=== PATIENT | female | born 1980 | race Caucasian/White ===

== ENCOUNTER 2017-09-20 02:33 | Emergency (ER) | payer MEDICAID ==
[~2017-09-20] VITALS: Ht 162.6 cm; Wt 95.0 kg
[2017-09-20 06:27] VITALS: BP 129/93
[2017-09-20] MEDS ORDERED: IBUPROFEN 600MG TABLET PO ONE (06:30)
== END 2017-09-20 10:36 | disposition home or self-care (01) ==
LOC: ER 02:33
DX: M79.671 Pain in right foot (principal); M79.672 Pain in left foot; F17.200 Nicotine dependence, unspecified, uncomplicated; R44.3 Hallucinations, unspecified
CPT/HCPCS: 73630; 99284

== ENCOUNTER 2017-09-20 13:50 | Emergency (ER) | payer MEDICAID ==
[~2017-09-20] VITALS: Ht 157.5 cm; Wt 105.0 kg
[2017-09-20 13:56] VITALS: BP 135/87
== END 2017-09-20 20:28 | disposition left against medical advice (07) ==
LOC: ER 13:53
DX: F41.9 Anxiety disorder, unspecified (principal); Z53.21 Procedure and treatment not carried out due to patient leaving prior to being seen by health care provider